=== PATIENT | male | born 1985 | race American Indian/Alaskan Native ===

== ENCOUNTER 2018-11-22 05:52 | Emergency (ER) | payer OTHER ==
[2018-11-22 06:46] LABS: Basophils % (Auto) 0.5 % (0.0-1.8); Eosinophils # (Auto) 0.2 K/mm3 (0.0-0.4); Eosinophils % (Auto) 2.9 % (0.0-4.3); Hematocrit 42.8 % (35.5-45.6); Hemoglobin 14.9 gm/dl (11.8-15.2); Lymphocytes # (Auto) 1.9 K/mm3 (1.2-5.4); Lymphocytes % (Auto) 23.6 % (13.4-35.0); Mean Corpuscular HGB Conc 35 % (32-34); Mean Corpuscular Volume 85 fl (84-94); Monocytes # (Auto) 0.7 K/mm3 (0.0-0.8); Monocytes % (Auto) 9.1 % (0.0-7.3); Platelet Count 216 K/mm3 (140-440); Red Blood Count 5.04 M/mm3 (3.65-5.03); Red Cell Distribution Width 13.7 % (13.2-15.2)
--- NOTE | 2018-11-22 06:56 | XRay Report ---
FINAL REPORT EXAM: XR CHEST ROUTINE 2V HISTORY: cough and ARLET TECHNIQUE: PA and lateral chest radiographs PRIORS: None. FINDINGS: No mediastinal shift. Cardiac silhouette is not enlarged. No pneumothorax, effusion, or focal pulmon roseann opacity. No acute skeletal finding. IMPRESSION: No focal pulmonary opacity.
[2018-11-22 06:58] LABS: BUN/Creatinine Ratio 24; Blood Urea Nitrogen 24 mg/dL (9-20); Calcium 9.8 mg/dL (8.4-10.2); Hemolysis Index 6
--- NOTE | 2018-11-22 06:58 | XRay Report ---
FINAL REPORT EXAM: XR SHOULDER 2+V RT HISTORY: shoulder pain and swelling COMPARISONS: None. FINDINGS: Three views right shoulder Flattening of the humeral head. Severe osteoarthrosis of the right glenohumeral joint with remodeling . Anterior dislocation. No displaced rib fracture. Acromioclavicular and coracoclavicular intervals a re normal. IMPRESSION: Anterior right glenohumeral dislocation is suggested with underlying severe arthritis and glenoid rem odeling/dysplasia.
[2018-11-22 07:01] LABS: INR 0.87 (0.87-1.13)
[2018-11-22 07:02] LABS: Partial Thromboplastin Time 26.7 Sec. (24.2-36.6)
[2018-11-22] MEDS ORDERED: IBUPROFEN PO ONE (08:26)
[2018-11-22] MEDS ORDERED: LIDOCAINE VISCOUS 2% MM ONE (08:27)
--- NOTE | 2018-11-22 08:37 | Emergency Department Report ---
ED ENT HPI - General Chief complaint: Dyspnea/Respdistress Stated complaint: SOB CHRONIC PAIN Time Seen by Provider: 11/22/18 08:19 Source: patient Mode of arrival: Ambulatory Limitations: No Limitations - History of Present Illness Initial comments: This is a 33-year-old male nontoxic, well nourished in appearance, no acute signs of distress presents to the ED with c/o of sore throat that causes to have SOB. Stated that sore throat feels like he cant get air pass due to the pain. Patient describes sore throat as swallowing razer blades. Patient denies any fever, chills, headache, stiff neck, nausea, vomiting, chest pain, numbness or tingling. Patient denies any drooling or hoarseness. Patient denies any allergies or significant past medical history. MD complaint: sore throat -: days(s) (1) Location: throat Severity: mild Severity scale (0 -10): 8 Consistency: constant Improves with: none Worsens with: swallowing Associated Symptoms: pain with swallowing, sore throat. denies: fever, cough, gum swelling, toothache, tinnitus, hearing loss, discharge from ear, rhinorrhea - Related Data Previous Rx's Medication Instructions Recorded Last Taken Type Ibuprofen [Motrin] 600 mg PO Q8H PRN #14 tablet 10/15/14 Unknown Rx traMADol [Ultram] 50 mg PO Q6HR PRN #14 tablet 10/15/14 Unknown Rx Ibuprofen [Motrin 600 MG tab] 600 mg PO Q8H PRN #30 tablet 10/23/14 Unknown Rx Sulfamethoxazole/Trimethoprim 1 each PO Q12H #14 tablet 10/23/14 Unknown Rx [Bactrim Ds] traMADol [Ultram] 50 mg PO Q6HR PRN #14 tablet 10/23/14 Unknown Rx Amoxicillin [Amoxicillin TAB] 875 mg PO BID #20 tablet 11/22/18 Unknown Rx Ibuprofen [Motrin] 600 mg PO Q8H PRN #20 tablet 11/22/18 Unknown Rx Nystas/Diphen/Xyl Visc/Mylanta 15 ml MM Q6H PRN 5 Days ml 11/22/18 Unknown Rx [Magic Mouthwash] Allergies Allergy/AdvReac Type Severity Reaction Status Date / Time No Known Allergies Allergy Unverified 11/23/13 17:17 ED Dental HPI - General Chief complaint: Dyspnea/Respdistress Stated complaint: SOB CHRONIC PAIN Time Seen by Provider: 11/22/18 08:19 Source: patient Mode of arrival: Ambulatory Limitations: No Limitations - Related Data Previous Rx's Medication Instructions Recorded Last Taken Type Ibuprofen [Motrin] 600 mg PO Q8H PRN #14 tablet 10/15/14 Unknown Rx traMADol [Ultram] 50 mg PO Q6HR PRN #14 tablet 10/15/14 Unknown Rx Ibuprofen [Motrin 600 MG tab] 600 mg PO Q8H PRN #30 tablet 10/23/14 Unknown Rx Sulfamethoxazole/Trimethoprim 1 each PO Q12H #14 tablet 10/23/14 Unknown Rx [Bactrim Ds] traMADol [Ultram] 50 mg PO Q6HR PRN #14 tablet 10/23/14 Unknown Rx Amoxicillin [Amoxicillin TAB] 875 mg PO BID #20 tablet 11/22/18 Unknown Rx Ibuprofen [Motrin] 600 mg PO Q8H PRN #20 tablet 11/22/18 Unknown Rx Nystas/Diphen/Xyl Visc/Mylanta 15 ml MM Q6H PRN 5 Days ml 11/22/18 Unknown Rx [Magic Mouthwash] Allergies Allergy/AdvReac Type Severity Reaction Status Date / Time No Known Allergies Allergy Unverified 11/23/13 17:17 ED Review of Systems ROS: Stated complaint: SOB CHRONIC PAIN Other details as noted in HPI Constitutional: denies: chills, fever Eyes: denies: eye pain, eye discharge, vision change ENT: throat pain. denies: ear pain Respiratory: denies: cough, shortness of breath, wheezing Cardiovascular: denies: chest pain, palpitations Endocrine: no symptoms reported Gastrointestinal: denies: abdominal pain, nausea, diarrhea Genitourinary: denies: urgency, dysuria Musculoskeletal: denies: back pain, joint swelling, arthralgia Skin: denies: rash, lesions Neurological: denies: headache, weakness, paresthesias Psychiatric: denies: anxiety, depression Hematological/Lymphatic: denies: easy bleeding, easy bruising ED Past Medical Hx - Past Medical History Previous Medical History?: Yes Hx Asthma: Yes - Surgical History Past Surgical History?: No - Social History Smoking Status: Current Every Day Smoker Substance Use Type: Alcohol - Medications Home Medications: Home Medications Medication Instructions Recorded Confirmed Last Taken Type Ibuprofen [Motrin] 600 mg PO Q8H PRN #14 tablet 10/15/14 Unknown Rx traMADol [Ultram] 50 mg PO Q6HR PRN #14 tablet 10/15/14 Unknown Rx Ibuprofen [Motrin 600 MG tab] 600 mg PO Q8H PRN #30 tablet 10/23/14 Unknown Rx Sulfamethoxazole/Trimethoprim 1 each PO Q12H #14 tablet 10/23/14 Unknown Rx [Bactrim Ds] traMADol [Ultram] 50 mg PO Q6HR PRN #14 tablet 10/23/14 Unknown Rx Amoxicillin [Amoxicillin TAB] 875 mg PO BID #20 tablet 11/22/18 Unknown Rx Ibuprofen [Motrin] 600 mg PO Q8H PRN #20 tablet 11/22/18 Unknown Rx Nystas/Diphen/Xyl Visc/Mylanta 15 ml MM Q6H PRN 5 Days ml 11/22/18 Unknown Rx [Magic Mouthwash] ED Physical Exam - General Limitations: No Limitations General appearance: alert, in no apparent distress - Head Head exam: Present: atraumatic, normocephalic - Eye Eye exam: Present: normal appearance - Expanded ENT Exam Expanded Ear exam: Present: normal external inspection Mouth exam: Present: normal external inspection. Absent: drooling, trismus, muffled voice Teeth exam: Present: normal inspection Throat exam: Positive: tonsillar erythema, other (uvula midline. no abcess noted). Negative: tonsillomegaly, tonsillar exudate, R peritonsillar mass, L peritonsillar mass - Neck Neck exam: Present: normal inspection, full ROM. Absent: tenderness, meningismus, lymphadenopathy - Respiratory Respiratory exam: Present: normal lung sounds bilaterally. Absent: respiratory distress, wheezes, rales, rhonchi, stridor, chest wall tenderness, accessory muscle use, decreased breath sounds, prolonged expiratory - Cardiovascular Cardiovascular Exam: Present: regular rate, normal rhythm, normal heart sounds. Absent: irregular rhythm, systolic murmur, diastolic murmur, rubs, gallop - Extremities Exam Extremities exam: Present: normal inspection, full ROM - Back Exam Back exam: Present: normal inspection, full ROM - Neurological Exam Neurological exam: Present: alert, oriented X3 - Psychiatric Psychiatric exam: Present: normal affect, normal mood - Skin Skin exam: Present: warm, dry, intact, normal color. Absent: rash ED Course Vital Signs 11/22/18 06:09 Temperature 98.4 F Pulse Rate 94 H Respiratory 18 Rate Blood Pressure 147/96 O2 Sat by Pulse 97 Oximetry - Reevaluation(s) Reevaluation #1: 11/22/18 08:34 Patient is speaking in full sentences with no signs of distress noted. ED Medical Decision Making - Lab Data Result diagrams: 11/22/18 06:31 11/22/18 06:31 - Medical Decision Making Labs unremarkable. CXR unremarkable. No chest pain. Critical care attestation.: If time is entered above; I have spent that time in minutes in the direct care of this critically ill patient, excluding procedure time. ED Disposition Clinical Impression: Pharyngitis Qualifiers: Pharyngitis/tonsillitis etiology: unspecified etiology Qualified Code(s): J02.9 - Acute pharyngitis, unspecified Disposition: - TO HOME OR SELFCARE Is pt being admited?: No Does the pt Need Aspirin: No Condition: Stable Instructions: Pharyngitis (ED) Additional Instructions: Follow-up with a primary care doctor in 3-5 days or if symptoms worsen and continue return to emergency room as soon as possible. Prescriptions: Amoxicillin [Amoxicillin TAB] 875 mg PO BID #20 tablet Ibuprofen [Motrin] 600 mg PO Q8H PRN #20 tablet PRN Reason: Pain Nystas/Diphen/Xyl Visc/Mylanta [Magic Mouthwash] 15 ml MM Q6H PRN 5 Days ml PRN Reason: Sore Throat Referrals: PRIMARY MD LILLIAN [Referring] - 3-5 Days DIYA AGUSTIN MD [Staff Physician] - 3-5 Days [facility] [Outside] - 3-5 Days [facility] [Outside] - 3-5 Days Forms: Work/School Release Form(ED)
[2018-11-22 09:16] VITALS: BP 140/90
== END 2018-11-22 09:14 | disposition home or self-care (01) ==
LOC: ED 05:52
DX: J02.9 Acute pharyngitis, unspecified (principal); F17.200 Nicotine dependence, unspecified, uncomplicated; J45.909 Unspecified asthma, uncomplicated
CPT/HCPCS: 36415; 71046; 80048; 85025; 85379; 85610; 85730; 99284

== ENCOUNTER 2018-12-23 14:33 | Emergency (ER) | payer SELFPAY ==
[2018-12-23 14:51] VITALS: BP 132/82
--- NOTE | 2018-12-23 14:53 | Emergency Department Report ---
Chief Complaint: Shoulder Injury Stated Complaint: RT SHOULDER PAIN Time Seen by Provider: 12/23/18 14:50 - HPI History of Present Illness: This is a 33 y.o. male that presents with pain to right rotator cuff area. Report cracking sensation with movement. Denies recent injury, weakness, numbness/tingling. - Exam Vital Signs: Vital Signs 12/23/18 14:50 Temperature 98.1 F Pulse Rate 89 Respiratory 20 Rate Blood Pressure 132/82 O2 Sat by Pulse 96 Oximetry MSE screening note: Focused history and physical exam performed. Due to findings the following was ordered: XR of right shoulder. ACC for further evaluation. ED Disposition for MSE Condition: Stable
--- NOTE | 2018-12-23 16:41 | Emergency Department Report ---
Chief Complaint: Shoulder Injury Stated Complaint: RT SHOULDER PAIN Time Seen by Provider: 12/23/18 14:50 - HPI History of Present Illness: 33-year-old -Irish male presents to the emergency room for right shoulder pain for 2 years. Patient has taken nothing for pain. 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 Patient denies any recent trauma or injuries. Patient is requesting a work excuse. - ROS Review of Systems: Right shoulder pain that is chronic. - Exam Vital Signs: Vital Signs 12/23/18 14:50 Temperature 98.1 F Pulse Rate 89 Respiratory 20 Rate Blood Pressure 132/82 O2 Sat by Pulse 96 Oximetry Physical Exam: Alert and oriented 3. No acute distress. Full range of motion to the right shoulder with some mild crepitus. There is no swelling no erythematous no warmth. MSE screening note: Focused history and physical exam performed. Due to findings the following was ordered: Patient is to obtain [id number] ibuprofen or Tylenol for pain management. Instructed patient to follow-up with the orthopedic provider as this is a chronic issue. Patient verbalized understanding Patient discussed with doctor:: [facility] ED Disposition for MSE Clinical Impression: Chronic right shoulder pain Disposition: Z-07 MED SCREENING EXAM-LEFT Is pt being admited?: No Does the pt Need Aspirin: No Condition: Stable Additional Instructions: Follow-up with the orthopedic provider for symptoms persist or gets worse. He can try taking [id number] Tylenol or Motrin for pain management. Referrals: PRIMARY CARE, [Primary Care Provider] - 3-5 Days Forms: Work/School Release Form(ED)
--- NOTE | 2018-12-23 17:48 | XRay Report ---
PROCEDURE: XR SHOULDER 2+V RT HISTORY: ac joint pain FINDINGS: AP views of the right shoulder were acquired in internal and external rotation as well as s capular Y view. Comparison is made to the prior examination of November 22, 2018. There is very advanced glenohumeral osteoarthritis, with marked loss of glenohumeral joint space, def ormity of the right humeral head and osteophyte formation from both the glenoid and humeral head. The humeral head appears inferiorly subluxed with regard to the bony glenoid, but on the Y-view appears to continue to articulate with the glenoid. This is not changed from prior exam. The acromioclavicular joint is intact and normally located. Impression: No fracture is seen in the right shoulder Advanced glenohumeral osteoarthritis This document is electronically signed by Nickolas Vasquez MD., December 23 2018 05:47:08 PM ET
== END 2018-12-23 16:49 | disposition left against medical advice (07) ==
LOC: ED 14:33
DX: M25.511 Pain in right shoulder (principal); G89.29 Other chronic pain